=== PATIENT | male | born 1970 | race Two or more races ===

== ENCOUNTER 2022-08-30 16:32 | Emergency (ER) | payer OTHER ==
[~2022-08-30] VITALS: Ht 177.8 cm; Wt 75.0 kg
[2022-08-30 17:00] VITALS: BP 122/74
[2022-08-30] MEDS ORDERED: IBUPROFEN 600 MG TABLET PO ONE (17:15)
[2022-08-30] MEDS ORDERED: CYCLOBENZAPRINE HCL 10 MG TABLET PO ONE (17:15)
[2022-08-30] MEDS ORDERED: CYCL-448 PO (17:51)
[2022-08-30] MEDS ORDERED: IBUP-1492 PO (17:51)
== END 2022-08-30 18:04 | disposition home or self-care (01) ==
LOC: EMS 16:34
DX: S70.11XA Contusion of right thigh, initial encounter (principal); V98.8XXA Other specified transport accidents, initial encounter; Y93.89 Activity, other specified; Y92.89 Other specified places as the place of occurrence of the external cause; Y99.8 Other external cause status
CPT/HCPCS: 99283